=== PATIENT | male | born 1960 | race Caucasian/White ===

== ENCOUNTER 2020-08-28 11:04 | Observation (INO) | payer OTHER ==
[2020-08-28] MEDS ORDERED: ASPIRIN 81 MG CHEWABLE TABLETS PO ONE (12:12)
[2020-08-28] MEDS ORDERED: SODIUM CHLORIDE 1,000 ML IV STA (12:15)
[2020-08-28] MEDS ORDERED: ASPIRIN 81 MG CHEWABLE TABLETS ONE (12:27)
[2020-08-28 13:18] LABS: BASO % 0.6 % (0-2.0); EOS % 1.3 % (0-4.5); HEMATOCRIT 43.6 % (35.4-49); HEMOGLOBIN 15.1 GM/dL (11.7-16.9); LYMPH % 23.8 % (8-40); MCH 30.3 pg (25.7-33.7); MCHC 34.6 g/dl (32.0-35.9); MEAN CELL VOLUME 87.7 fl (80-96); MONO % 9.4 % (3.8-10.2); NEUT % 64.9 % (42.8-82.8); PLATELET COUNT 175 K/MM3 (134-434); RBC 4.98 M/mm3 (4.00-5.60); RDW 12.8 % (11.9-15.9); WHITE BLOOD COUNT 6.4 K/mm3 (4.0-10.0)
[2020-08-28 13:24] LABS: INR 1.02 (0.83-1.09); PROTHROMBIN TIME (PATIENT) 12.5 SEC (9.7-13.0)
[2020-08-28 13:28] LABS: URINE APPEARANCE CLEAR; URINE BILIRUBIN NEGATIVE (NEGATIVE); URINE COLOR YELLOW; URINE GLUCOSE (UA) NEGATIVE (NEGATIVE); URINE KETONE NEGATIVE (NEGATIVE); URINE LEUK ESTERASE NEGATIVE (NEGATIVE); URINE NITRITE NEGATIVE (NEGATIVE); URINE PROTEIN NEGATIVE (NEGATIVE); URINE UROBILINOGEN 0.2 mg/dL (0.2-1.0)
[2020-08-28 13:33] LABS: CHLORIDE 103 mmol/L (98-107); SODIUM 137 mmol/L (136-145)
[2020-08-28 13:35] LABS: CALCIUM 8.7 mg/dL (8.5-10.1)
[2020-08-28 13:36] LABS: ALBUMIN 4.1 g/dl (3.4-5.0); ANION GAP 7 MMOL/L (8-16); BLOOD UREA NITROGEN 14.5 mg/dL (7-18); CO2 27 mmol/L (21-32); GLUCOSE,RANDOM 97 mg/dL (74-106); MAGNESIUM 2.1 mg/dL (1.8-2.4)
[2020-08-28 13:39] LABS: SGOT/AST 18 U/L (15-37); SGPT/ALT 49 U/L (13-61)
[2020-08-28 13:40] LABS: BILIRUBIN,TOTAL 1.2 mg/dL (0.2-1); TOT PROT 7.1 g/dl (6.4-8.2)
[2020-08-28 13:42] LABS: ALK PHOS 84 U/L (45-117)
[2020-08-28] MEDS ORDERED: metoPROLOL SUCCINATE 25 MG TAB.SR.24H (FP) PO ONE (16:13)
[2020-08-28] MEDS ORDERED: metoPROLOL SUCCINATE 25 MG TAB.SR.24H (FP) ONE (16:37)
[2020-08-28] MEDS ORDERED: ATORVASTATIN CA 40 MG TABLET (FP) PO SCH (22:00)
[2020-08-29 03:00] VITALS: BMI 30.1
[2020-08-29 07:31] LABS: BASO % 0.6 % (0-2.0); EOS % 1.9 % (0-4.5); HEMATOCRIT 40.8 % (35.4-49); HEMOGLOBIN 14.5 GM/dL (11.7-16.9); LYMPH % 22.2 % (8-40); MCHC 35.4 g/dl (32.0-35.9); MEAN CELL VOLUME 87.7 fl (80-96); MEAN PLT VOLUME 8.2 fl (7.5-11.1); MONO % 8.8 % (3.8-10.2); NEUT % 66.5 % (42.8-82.8); PLATELET COUNT 175 K/MM3 (134-434); RBC 4.66 M/mm3 (4.00-5.60); RDW 12.6 % (11.9-15.9); WHITE BLOOD COUNT 7.3 K/mm3 (4.0-10.0)
[2020-08-29 07:49] LABS: CHLORIDE 106 mmol/L (98-107); SODIUM 137 mmol/L (136-145)
[2020-08-29 07:58] LABS: ANION GAP 5 MMOL/L (8-16); BLOOD UREA NITROGEN 16.2 mg/dL (7-18); CALCIUM 9.1 mg/dL (8.5-10.1); CO2 27 mmol/L (21-32)
[2020-08-29 07:59] LABS: GLUCOSE,RANDOM 112 mg/dL (74-106)
[2020-08-29] MEDS ORDERED: amLODIPine BESYLATE 5 MG TABLET (FP) PO ONE (09:50)
[2020-08-29] MEDS ORDERED: EZETIMIBE 10 MG TABLET (FP) PO SCH (10:00)
[2020-08-29] MEDS ORDERED: ASPIRIN 81 MG CHEWABLE TABLETS PO SCH (10:00)
[2020-08-29] MEDS ORDERED: metoPROLOL SUCCINATE 25 MG TAB.SR.24H (FP) PO SCH (12:30)
[2020-08-29 14:17] VITALS: BP 127/83; PULSE 83; TEMP 98.3
== END 2020-08-29 17:40 | disposition home or self-care (01) ==
LOC: JER 11:04 → JERBED 15:27 → J4W 23:15
PROVIDERS: ADMIT Internal Medicine; ATTEND Internal Medicine
PROC: 3E0337Z Introduction of Electrolytic and Water Balance Substance into Peripheral Vein, Percutaneous Approach (ICD-10-PCS; principal; 2020-08-28)
DX: I25.10 Atherosclerotic heart disease of native coronary artery without angina pectoris (principal); I11.9 Hypertensive heart disease without heart failure; Z95.5 Presence of coronary angioplasty implant and graft; R00.2 Palpitations; R07.2 Precordial pain
CPT/HCPCS: 36415; 71046-TC-FY; 78452-TC; 80048; 80053; 81003; 82550; 83036; 83735; 84443; 84484; 85025; 85610; 87086; 93005; 93010; 93017; 93306-TC; 99285-25; A9502; C9803; G0378; U0003; U0005